=== PATIENT | male | born 1980 | race American Indian/Alaskan Native ===

== ENCOUNTER 2021-03-23 21:31 | Inpatient (IN) | payer MEDICAID, OTHER ==
[~2021-03-23] VITALS: Ht 175.3 cm; Wt 99.8 kg
[2021-03-23 22:47] LABS: Basophils # (auto) 0.2 10 ^3/uL (0-0.2); Basophils % (auto) 2.9 % (0.0-2.0); Eosinophils # (auto) 0.1 10 ^3/uL (0-0.8); Eosinophils % (auto) 1.4 % (0.0-7.0); Hematocrit 44.1 % (41.0-53.0); Hemoglobin 15.3 g/dL (13.5-17.5); Lymphocytes # (auto) 2.8 10 ^3/uL (0.4-5.4); Lymphocytes % (auto) 34.7 % (10.0-50.0); Mean Corpuscular Hemoglobin 29.7 pg (28.0-32.0); Mean Corpuscular Hgb Conc. 34.6 g/dL (32.0-36.0); Mean Corpuscular Volume 85.6 fL (80.0-100.0); Monocytes # (auto) 0.6 10 ^3/uL (0-1.3); Monocytes % (auto) 7.2 % (0.0-12.0); Neutrophils # (auto) 4.3 10 ^3/uL (1.6-8.6); Neutrophils % (auto) 53.8 % (37.0-80.0); Nucleated Red Blood Cells % 0.1 %; Red Blood Cells 5.15 10^6/uL (4.5-5.90); Red Cell Distribution Width 13.3 % (11.8-14.3)
[2021-03-23 23:05] LABS: Albumin 3.9 g/dL (3.4-5.0); Calcium 9.3 mg/dL (8.5-10.1)
[2021-03-23 23:08] LABS: BUN/Creatinine Ratio 17.2; Bilirubin, Total 0.3 mg/dL (0.2-1.0); Total Protein 7.8 g/dL (6.4-8.2)
[2021-03-24 00:36] LABS: Urine Bacteria NONE SEEN /hpf (None Seen); Urine Blood TRACE /uL (Negative); Urine Mucus FEW (None Seen); Urine Specific Gravity 1.025 (1.001-1.035); Urine WBC 1 /hpf (0 - 3)
[2021-03-24] MEDS ORDERED: IOHEXOL 300 MG/ML 100ML BOTTLE IJ ONE (00:38)
[2021-03-24] MEDS ORDERED: CIPROFLOXACIN 400MG/200ML 200 ML IV ONE (01:45)
[2021-03-24] MEDS ORDERED: SODIUM CHLORIDE 0.9% 1,000 ML IV ONE (01:45)
[2021-03-24] MEDS ORDERED: metroNIDAZOLE 500MG/100ML 100 ML IV ONE (01:45)
[2021-03-24] MEDS ORDERED: ONDANSETRON HCL 4 MG/2 ML VIAL IV ONE (02:30)
[2021-03-24] MEDS ORDERED: ONDANSETRON HCL 4 MG/2 ML VIAL IV PRN ×2 (02:30→15:00)
[2021-03-24] MEDS ORDERED: fentaNYL CITRATE 100 MCG/2 ML VL IV ONE (02:30)
[2021-03-24 02:37] LABS: INR 0.98 (0.9-1.15)
[2021-03-24] MEDS: MORPHINE SULFATE 4 MG/ML SYR/VIAL IV PRN ×3 (03:00→23:34)
[2021-03-24] MEDS: SODIUM CHLORIDE 0.9% 1,000 ML IV SCH ×2 (08:15→14:16)
[2021-03-24] MEDS: metroNIDAZOLE 500MG/100ML 100 ML IV SCH ×3 (08:16→22:38)
[2021-03-24 09:00] VITALS: BP 132/89
[2021-03-24] MEDS: PANTOPRAZOLE 40 MG/10 ML VIAL INJ IV SCH (09:25)
[2021-03-24] MEDS: cefTRIAXone 1GM/50ML D5W 50 ML IV SCH (09:31)
[2021-03-24] MEDS ORDERED: MIDAZOLAM HCL 2MG/2ML 2ml VIAL (1mg/ml) ONE (14:14)
[2021-03-24] MEDS ORDERED: fentaNYL CITRATE 100 MCG/2 ML VL ONE (14:14)
[2021-03-24] MEDS ORDERED: PROPOFOL 10 MG/ML 20 ML IV ONE (14:15)
[2021-03-24] MEDS ORDERED: GLYCOPYRROLATE 0.2 MG/ML 1ML VIAL IV ONE (14:15)
[2021-03-24] MEDS ORDERED: MEPERIDINE HCL (50 MG/ML) 1 ML VIAL ONE (14:15)
[2021-03-24] MEDS ORDERED: DexAMETHasone SOD PHOS 10MG/1ML VIAL INJ ONE (14:15)
[2021-03-24] MEDS ORDERED: NEOSTIGMINE 1 MG/ML INJ (10mg/10ML VIAL) IV ONE (14:15)
[2021-03-24] MEDS ORDERED: ROCURONIUM 10MG/ML 10ML VIAL IV ONE (14:16)
[2021-03-24] MEDS ORDERED: BUPIVACAINE W/ EPINEPH 0.25% INJ 50ML MDV ONE (14:49)
[2021-03-24] MEDS ORDERED: ePHEDrine SULFATE 50 MG/ML AMP IV PRN (15:00)
[2021-03-24] MEDS ORDERED: LABETALOL HCL 5 MG/ML 4ML SYRINGE IV PRN (15:00)
[2021-03-24] MEDS ORDERED: MORPHINE SULFATE 4 MG/ML SYR/VIAL IV PRN (15:00)
[2021-03-24] MEDS ORDERED: MIDAZOLAM HCL 2MG/2ML 2ml VIAL (1mg/ml) IV PRN (15:00)
[2021-03-24] MEDS ORDERED: fentaNYL CITRATE 100 MCG/2 ML VL IV PRN (15:00)
[2021-03-24] MEDS: HYDROmorphone HCL 2 MG/ML VL IV PRN ×2 (16:07→16:29)
[2021-03-24 17:00] VITALS: BP 118/82
[2021-03-24 21:54] VITALS: BP 129/73
[2021-03-25] MEDS: SODIUM CHLORIDE 0.9% 1,000 ML IV SCH (02:02)
[2021-03-25 05:49] VITALS: BP 119/81
[2021-03-25 05:50] LABS: Basophils # (auto) 0 10 ^3/uL (0-0.2); Basophils % (auto) 0.1 % (0.0-2.0); Eosinophils # (auto) 0 10 ^3/uL (0-0.8); Hematocrit 39.3 % (41.0-53.0); Hemoglobin 13.9 g/dL (13.5-17.5); Lymphocytes # (auto) 0.9 10 ^3/uL (0.4-5.4); Mean Corpuscular Hemoglobin 29.6 pg (28.0-32.0); Mean Corpuscular Hgb Conc. 35.3 g/dL (32.0-36.0); Mean Corpuscular Volume 83.9 fL (80.0-100.0); Monocytes # (auto) 0.5 10 ^3/uL (0-1.3); Monocytes % (auto) 5.2 % (0.0-12.0); Neutrophils # (auto) 8.2 10 ^3/uL (1.6-8.6); Neutrophils % (auto) 85.7 % (37.0-80.0); Red Blood Cells 4.69 10^6/uL (4.5-5.90); Red Cell Distribution Width 12.8 % (11.8-14.3); White Blood Cell 9.5 10^3/uL (4.4-10.8)
[2021-03-25] MEDS: metroNIDAZOLE 500MG/100ML 100 ML IV SCH (06:06)
[2021-03-25 06:13] LABS: Potassium 4.3 mmol/L (3.5-5.1)
[2021-03-25 06:19] LABS: BUN/Creatinine Ratio 14.3; Calcium 8.6 mg/dL (8.5-10.1)
[2021-03-25] MEDS: PANTOPRAZOLE 40 MG/10 ML VIAL INJ IV SCH (08:40)
[2021-03-25] MEDS: cefTRIAXone 1GM/50ML D5W 50 ML IV SCH (08:40)
[2021-03-25] MEDS: MORPHINE SULFATE 4 MG/ML SYR/VIAL IV PRN (08:41)
[2021-03-25 09:00] VITALS: BP 103/60
[2021-03-25 12:06] VITALS: BP 103/60
[2021-03-25 12:55] VITALS: BP 109/56
== END 2021-03-25 14:20 | disposition home or self-care (01) | DRG 234 ==
LOC: ER 21:35 → OVERFLOW 03-24 02:28 → WEST WING 03-24 08:22
PROVIDERS: ADMIT Nurse Practitioner; ATTEND Family Medicine
PROC: 0DTJ4ZZ Resection of Appendix, Percutaneous Endoscopic Approach (ICD-10-PCS; principal; 2021-03-24 14:25)
DX: K35.80 Unspecified acute appendicitis (principal); R71.0 Precipitous drop in hematocrit; K59.00 Constipation, unspecified; Z20.822 Contact with and (suspected) exposure to COVID-19; E86.0 Dehydration
CPT/HCPCS: 36415; 71045; 74177; 80048; 80053; 81001; 82150; 83690; 85025; 85610; 86850; 86900; 86901; 87070; 87075; 87205; 87426; 93005; 96365; 96366; 96367; 96375; C9113; G0378; J0696; J1100; J2250; J2405; J2704; J3490